=== PATIENT | female | born 1995 | race Caucasian/White ===

== ENCOUNTER 2020-10-27 14:12 | Outpatient (CLI) | payer OTHER | END 2020-10-27 14:13 | disposition home or self-care (01) | LOC: BICMAMMO 14:12 | PROVIDERS: ATTEND Family Medicine | DX: Z13.820 Encounter for screening for osteoporosis (principal); G35 Multiple sclerosis; Z79.899 Other long term (current) drug therapy | CPT/HCPCS: 77080 ==